=== PATIENT | male | born 1940 | race Caucasian/White ===

== ENCOUNTER → 2016-07-24 | Outpatient (CLI) | payer OTHER, BC ==
[~2016-07-24] MED LIST: ALIGN4 MG PO; BUMEX1 MG PO; CO Q-10100 MG PO; COLACE100 MG PO; LIPITOR40 MG PO; LO-DOSE ASPIRIN81 M2 PO; LUTEIN6 M1 PO; NEURONTIN100 MG PO; PERCOCET 5/31 TABLET PO; PROAMATINE2.5 MG PO
== END | disposition home or self-care (01) ==
LOC: RAD 07:22
PROC: 0W9G3ZZ Drainage of Peritoneal Cavity, Percutaneous Approach (ICD-10-PCS; principal; 2016-07-24)
DX: R18.8 Other ascites (principal)

== ENCOUNTER 2016-07-29 05:05 | Day surgery (SDC) | payer OTHER, BC ==
[~2016-07-29] VITALS: Ht 165.1 cm; Wt 76.3 kg
[~2016-07-29 05:05] MED LIST changes: -PERCOCET 5/31 TABLET PO
[2016-07-29 06:08] VITALS: BP 132/63
[2016-07-29 06:22] LABS: HEMATOCRIT 31.7 % (38.0-50.0); MCV 96.1 FL (86-99)
[2016-07-29 06:31] LABS: CHLORIDE 96 mEq/L (99-109); POTASSIUM 4.9 mEq/L (3.7-5.4); SODIUM 140 mEq/L (136-147)
[2016-07-29 06:32] LABS: GLUCOSE 111 mg/dL (70-99)
[2016-07-29 06:34] LABS: ANION GAP 16 MEQ/L (2-14)
[2016-07-29 06:36] LABS: GFR ESTIMATE (CALCULATED) 11 mL/min/
[2016-07-29 06:37] LABS: UREA NITROGEN (BUN) 57 mg/dL (9-23)
[2016-07-29 07:47] LABS: METH RESISTANT S AUREUS PCR NEGATIVE (NEGATIVE)
[2016-07-29 07:55] LABS: PROBE CHECK PASS; SPECIMEN PROCESSING CONTROL PASS
[2016-07-29] MEDS ORDERED: PERCOCET 5/31 TABLET PO (09:55)
[2016-07-29 10:10] LABS: POINT-OF-CARE METER ID UU13113675
[2016-07-29 11:06] VITALS: BP 120/53
[2016-07-29 12:30] VITALS: BP 130/56
== END 2016-07-29 12:30 | disposition home or self-care (01) ==
LOC: SDC 05:05
PROVIDERS: Surgery
DX: K40.30 Unilateral inguinal hernia, with obstruction, without gangrene, not specified as recurrent (principal); K42.9 Umbilical hernia without obstruction or gangrene; K43.9 Ventral hernia without obstruction or gangrene; I12.0 Hypertensive chronic kidney disease with stage 5 chronic kidney disease or end stage renal disease; E11.22 Type 2 diabetes mellitus with diabetic chronic kidney disease; N18.6 End stage renal disease; Z99.2 Dependence on renal dialysis; R18.8 Other ascites; E78.5 Hyperlipidemia, unspecified; K43.2 Incisional hernia without obstruction or gangrene; M19.90 Unspecified osteoarthritis, unspecified site; Z85.528 Personal history of other malignant neoplasm of kidney; Z79.82 Long term (current) use of aspirin; Z79.899 Other long term (current) drug therapy; Z90.5 Acquired absence of kidney; Z95.1 Presence of aortocoronary bypass graft; Z95.2 Presence of prosthetic heart valve; Z95.0 Presence of cardiac pacemaker
CPT/HCPCS: 80048; 82948; 85014; 85018; 87641; 88302; C1781; J0690; J1100; J1170; J2250; J2405; J2710; J2765; J3010